=== PATIENT | male | born 1995 | race Hispanic/Latino ===

== ENCOUNTER 2022-07-30 01:15 | Emergency (ER) | payer OTHER ==
[2022-07-30] MEDS ORDERED: ONDANSETRON 4 MG/2 ML VIAL ONE (01:34)
[2022-07-30] MEDS ORDERED: TDAP (DIPHTH,PERTUSS(ACELL),TET VAC) 0.5 ML VIAL IMVAC ONE (01:34)
[2022-07-30] MEDS ORDERED: NA CHLORIDE 0.9% 100 ML IV ONE (01:34)
[2022-07-30] MEDS ORDERED: NA CHLORIDE 0.9% 1,000 ML ONE (01:34)
[2022-07-30] MEDS ORDERED: CEFAZOLIN SODIUM 1 GM/VIAL ONE (01:34)
[2022-07-30 01:39] LABS: Absolute Lymphocytes (CBC) 1.9 K/uL (0.7-4.9); Hematocrit 43.2 % (36.0-45.0); Lymphocytes % 19.1 % (15.3-44.8); MCV 86.9 fL (80-100); RBC Red Blood Cell Count 4.97 M/uL (3.86-4.86)
[2022-07-30 01:47] LABS: Protime INR 0.94
[2022-07-30 01:56] LABS: Urine Blood 3+ (Negative); Urine Glucose Negative (Negative); Urine Protein 2+ (Negative); Urine Specific Gravity >=1.030 (1.005-1.030); Urine pH 5.5 (5.0-7.0)
[2022-07-30 02:01] LABS: ALT/SGPT 58 U/L (16-61); AST/SGOT 36 U/L (15-37); Albumin 3.8 g/dL (3.4-5.0); Alkaline Phosphatase 64 U/L (45-117); BUN Blood Urea Nitrogen 10 mg/dL (7-18); Bicarbonate 27 mmol/L (21-32); Bilirubin Direct < 0.1 mg/dL (0-0.2); Bilirubin Total 0.2 mg/dL (0.2-1.0); Glomerular Filtration Rate 97 ml/min (=/>90); Glucose Level 145 mg/dL (74-106); Potassium 3.8 mmol/L (3.5-5.1); Protein, Total 7.1 g/dL (6.4-8.2); Sodium Level 140 mmol/L (136-145)
[2022-07-30 02:14] LABS: Barbiturates NEGATIVE (NEGATIVE); Benzodiazepines NEGATIVE (NEGATIVE); Cocaine NEGATIVE (NEGATIVE); METHAMPHETAM NEGATIVE (NEGATIVE); Methadone NEGATIVE (NEGATIVE); Opiates NEGATIVE (NEGATIVE); Phencyclidine NEGATIVE (NEGATIVE); THC Cannibis NEGATIVE (NEGATIVE)
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
[2022-07-30 04:22] VITALS: TEMP 97.8
[2022-07-30 04:25] VITALS: BP 123/66; O2SAT 99
--- NOTE | 2022-07-30 21:41 | RAD REPORT ---
EXAM DESCRIPTION: RAD - Femur Left - 07/30/2022 2:57 am TECHNIQUE: Frontal and lateral views of the right femur. COMPARISON: No relevant prior studies available. FINDINGS: Bones/joints: Unremarkable. No acute fracture. No dislocation. Soft tissues: Unremarkable. Other findings: Excreted contrast within the urinary bladder. * A single impression for all exams can be found at the end of this report IMPRESSION: XR Pelvis, 1 View: No acute injury. XR Left Femur, 2 Views: No acute injury. XR Right Femur, 2 Views: No acute injury. Electronically signed by: Shereen Hauser MD 07/30/2022 3:24 AM PADDED PRODUCTS FINISHER Due to temporary technical issues with the PACS/Fluency reporting system, reports are being signed by the in house radiologists without review as a courtesy to insure prompt reporting. The interpreting radiologist is fully responsible for the content of the report.
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
--- NOTE | 2022-08-02 08:37 | EKG ---
Test Date: 2022-07-30 Test Time: 02:13:50 Landscaping Specialist: RV MEASUREMENT RESULTS: Intervals: Rate: 116 NE: 156 QRSD: 68 QT: 318 QTc: 442 Morrison: P: 60 NE: 156 QRS: 54 T: 24 INTERPRETIVE STATEMENTS: Sinus tachycardia Otherwise normal ECG No previous ECG available for comparison Electronically Signed On 08-02-22 08:32:56 SOAP INSPECTOR by Davi Miller
== END 2022-07-30 04:17 | disposition home or self-care (01) ==
LOC: EDSEX 01:15 → ER 01:15
DX: S00.83XA Contusion of other part of head, initial encounter (principal); F10.129 Alcohol abuse with intoxication, unspecified; M79.605 Pain in left leg; M79.604 Pain in right leg; R31.9 Hematuria, unspecified; R41.82 Altered mental status, unspecified; V58.5XXA Driver of pick-up truck or van injured in noncollision transport accident in traffic accident, initial encounter; Z23 Encounter for immunization
CPT/HCPCS: 96365; 96361; 93005; 85025; 80048; 36415; 80320; 86900; 86850; 80329 ×2; 85610; 86901; 80076; 85730; 81003; 80307; 70450; 72125; 71260; 70486; 76377; 74177; 71045; 72170; 73030; 73552 ×2; 90471; 51702; 96375; 99284; 96366; Q9967; J7030; J2405; J0690

== ENCOUNTER 2022-07-30 10:24 | Emergency (ER) | payer OTHER ==
--- OUTSIDE RECORDS SUMMARY | 2022-07-30 10:27 | XMS REPORT | Continuity of Care Document ---
:1995 Author Organization [facility] t Address [address] [place] [address] Care Team Providers Name Role Phone PCP, PATIENT DOES NOT HAVE A Primary Care Physician UnavailJUWAN Cervantes Attending Clinician Unavailable JUWAN PASTOR Attending Clinician Unavailable Mini YOSTPLaurie Attending Clinician Dottie Boone RN Attending Clinician Unavailable Kyae Carvajal Attending Clinician KAYE PATRICIO Attending Clinician Unavailable JUWAN PASTOR Admitting Clinician Unavailable Problems Condition Condition Condition Status Onset Resolution Last Treating Co mments Source Name Details Category Date Date Treatment Clinician Date No known No known Disease Unive rs active active ity of problems problems [facility] Allergies, Adverse Reactions, Alerts Allergy Allergy Status Severity Reaction(s) Onset Inactive Treating Comm ents Source Name Type Date Date Clinician NO KNOWN Drug Active Univers ALLERGIE Class ity of S [facility] Social History Social Habit Start Date Stop Date Quantity Comments Source Exposure to 2022-01-14 2022-01-24 Yes [facility] SARS-CoV-2 (event) [facility]:00[facility]00 [facility] Assigned At [birth year] [facility] 00:00:00 00:00:00 [facility] Smoking Status Start Date Stop Date Source Unknown if ever smoked [facility] Medications Ordered Filled Start Stop Current Ordering Indication Dosage Frequency Signature Comments Components Source Medication Medication Date Date Medication? Clinician (SIG) Name Name ondansetron No 4mg 4 mg, Univ ers (ZOFRAN) 01-24 Oral, ity of tablet 4 mg 19:15: 20[place]07 [place] dose, On Medical Mon Branch 01/24/22 at 1415, Routine acetaminoph No 650mg 650 mg, U nivers en 01-24 Oral, ity of (TYLENOL) 19:15: 20:06 [place] 650 00 :00 dose, On Medic al mg Mon Branch 01/24/22 at 1415, JEANETTE ondansetron Yes [id number] 4mg Take 1 Univers (ZOFRAN) 4 01-24 tablet by ity of mg tablet 00:00: mouth [place] 00 every 8 Medical (eight) Branch hours as needed for Nausea and Vomiting (N/V). benzonatate Yes [id number] 100mg Take 1 Univers 100 mg 6-27 capsule by ity of capsule 00:00: mouth 3 [place] 00 (three) Medical times Branch daily as needed for Cough. nirmatrelvi Yes [id number] 3{tbl} Take 3 Univers r-ritonavir 6-27 tablets by it y of (PAXLOVID, 00:00: [place] EUA,) 150 00 (two) Medical mg x 2- 100 times Branch mg tablet daily. codeine-gua 2020- No 10mL 10 mL, Uni vers ifenesin 04-12 Oral, ity of (ROBITUSSIN 03:15: 02:26 [place] 1 [place] 10- 00 :00 dose, On Medic al mg/5 mL [place] oral 04/11/21 at solution 10 2215, JEANETTE mL codeine-gua 2020- No 10mL 10 mL, Uni vers ifenesin 04-12 Oral, ity of (ROBITUSSIN 03:15: 02:26 [place] 1 [place] 10-100 00 :00 dose, On Medic al mg/5 mL [place] oral 04/11/21 at solution 10 2215, JEANETTE mL ondansetron 2020- No [id number] 8mg 8 mg, Slow Univers (ZOFRAN 04-12 IV Push, ity of (PF)) 00:45: 23:49 ONCE, 1 [place] injection 8 00 :00 dose, On Medi santi mg [facility] 04/11/21 at 1945, JEANETTE ketorolac 2020- No [id number] 30mg 30 mg, Univers (TORADOL) 04-12 Slow IV ity of injection 00:45: 23:50 Push, [place] 30 mg 00 :00 ONCE, 1 Medical dose, On [facility] 04/11/21 at 1945, JEANETTE
Fa culty member approving Restricted medication : EMERGENCY ROOM, ondansetron 2020- No [id number] 8mg 8 mg, Slow Univers (ZOFRAN 04-12 IV Push, ity of (PF)) 00:45: 23:49 ONCE, 1 [place] injection 8 00 :00 dose, On Medi santi mg [facility] 04/11/21 at 1945, JEANETTE ketorolac 2020- No [id number] 30mg 30 mg, Univers (TORADOL) 04-12 Slow IV ity of injection 00:45: 23:50 Push, [place] 30 mg 00 :00 ONCE, 1 Medical dose, On [facility] 04/11/21 at 1945, JEANETTE
Fa culty member approving Restricted medication : EMERGENCY ROOM, iopamidol 2020- No [id number] 100mL 100 mL, Univers (ISOVUE 04-12 Intravenou ity o f 370-500 mL) 00:30: 23:19 s, ONCE, 1 [place] injection 00 :00 dose, On Medica l 100 mL [facility] 04/11/21 at 1930, Routine iopamidol 2020- No [id number] 100mL 100 mL, Univers (ISOVUE 04-12 Intravenou ity o f 370-500 mL) 00:30: 23:19 s, ONCE, 1 [place] injection 00 :00 dose, On Medica l 100 mL [facility] 04/11/21 at 1930, Routine NaCl 0.9% 2020- No [id number] 1000mL at 999 Univers (NS) bolus 04-11 mL/hr, ity of infusion 23:45: 01:25 1,000 mL, [place] 1,000 mL 00 :00 IV Medical Piggyback, Branch ONCE, 1 dose, On [place] 04/11/21 at 1845, STAT NaCl 0.9% No [id number] 1000mL at 999 Univers (NS) bolus 04-11 mL/hr, ity of infusion 23:45: 01:25 1,000 mL, [place] 1,000 mL 00 :00 IV Medical Piggyback, Branch ONCE, 1 dose, On [place] 04/11/21 at 1845, STAT ibuprofen 2020- No [id number] 800mg 800 mg, Univers (IBU) 04-11 Oral, ity of tablet 800 23:45: 23:08 ONCE, 1 [place] mg 00 :00 dose, On [facility] 04/11/21 at 1845, JEANETTE ibuprofen No [id number] 800mg 800 mg, Univers (IBU) 04-11 Oral, ity of tablet 800 23:45: 23:08 ONCE, 1 [place] mg 00 :00 dose, On [facility] 04/11/21 at 1845, JEANETTE acetaminoph 0 2020- No [id number] 1000mg 1,000 mg, Univers en 04-11 Oral, ity of (TYLENOL) 23:30: 22:25 ONCE, [place] tablet [place] :00 dose, On Medical 1,000 mg [facility] 04/11/21 at 1830, JEANETTE acetaminoph 0 2020- No [id number] 1000mg 1,000 mg, Univers en 04-11 Oral, ity of (TYLENOL) 23:30: 22:25 ONCE, [place] tablet 00 :00 dose, On Medical 1,000 mg [facility] 04/11/21 at 1830, JEANETTE albuterol 2020-0 Yes [id number] 2{puff} Inhale 2 Univers 90 9-12 Puffs ity of mcg/actuati 00:00: every 4 [place] on inhaler 00 (four) Medical hours as Branch needed for Wheezing or Shortness of Breath. ondansetron 2021-0 Yes [id number] 4mg Take 1 Univers (ZOFRAN 9-12 tablet by ity of ODT) 4 mg 00:00: mouth [place] disintegrat 00 every 8 Medic al ing tablet (eight) Branch hours as needed for Nausea and Vomiting (N/V). benzonatate 2021-0 Yes [id number] 100mg Take 1 Univers 100 mg 9-12 capsule by ity of capsule 00:00: mouth 3 [place] 00 (three) Medical times Branch daily as needed for Cough. albuterol 2021-0 Yes [id number] 2{puff} Inhale 2 Univers 90 9-12 Puffs ity of mcg/actuati 00:00: every 4 [place] on inhaler 00 (four) Medical hours as Branch needed for Wheezing or Shortness of Breath. ondansetron 2021-0 Yes [id number] 4mg Take 1 Univers (ZOFRAN 9-12 tablet by ity of ODT) 4 mg 00:00: mouth [place] disintegrat 00 every 8 Medic al ing tablet (eight) Branch hours as needed for Nausea and Vomiting (N/V). benzonatate 2021-0 Yes [id number] 100mg Take 1 Univers 100 mg 9-12 capsule by ity of capsule 00:00: mouth 3 [place] 00 (three) Medical times Branch daily as needed for Cough. albuterol 2021-0 Yes [id number] 2{puff} Inhale 2 Univers 90 9-12 Puffs ity of mcg/actuati 00:00: every 4 [place] on inhaler 00 (four) Medical hours as Branch needed for Wheezing or Shortness of Breath. ondansetron 2021-0 Yes [id number] 4mg Take 1 Univers (ZOFRAN 9-12 tablet by ity of ODT) 4 mg 00:00: mouth [place] disintegrat 00 every 8 Medic al ing tablet (eight) Branch hours as needed for Nausea and Vomiting (N/V). benzonatate 2021-0 Yes [id number] 100mg Take 1 Univers 100 mg 9-12 capsule by ity of capsule 00:00: mouth 3 [place] 00 (three) Medical times Branch daily as needed for Cough. albuterol 2021-0 Yes [id number] 2{puff} Inhale 2 Univers 90 9-12 Puffs ity of mcg/actuati 00:00: every 4 [place] on inhaler 00 (four) Medical hours as Branch needed for Wheezing or Shortness of Breath. ondansetron Yes [id number] 4mg Take 1 Univers (ZOFRAN 9-12 tablet by ity of ODT) 4 mg 00:00: mouth [place] disintegrat 00 every 8 Medic al ing tablet (eight) Branch hours as needed for Nausea and Vomiting (N/V). benzonatate Yes [id number] 100mg Take 1 Univers 100 mg 9-12 capsule by ity of capsule 00:00: mouth 3 [place] 00 (three) Medical times Branch daily as needed for Cough. albuterol Yes [id number] 2{puff} Inhale 2 Univers 90 9-12 Puffs ity of mcg/actuati 00:00: every 4 [place] on inhaler 00 (four) Medical hours as Branch needed for Wheezing or Shortness of Breath. ondansetron 2021- No [id number] 4mg Take 1 Univers (ZOFRAN 9-12 -27 tablet by ity of ODT) 4 mg 00:00: 00:00 mouth [place] disintegrat 00 :00 every 8 Medic al ing tablet (eight) Branch hours as needed for Nausea and Vomiting (N/V). benzonatate 2021- No [id number] 100mg Take 1 Univers 100 mg 9-12 -27 capsule by ity of capsule 00:00: 00:00 mouth 3 [place] 00 :00 (three) Medical times Branch daily as needed for Cough. Vital Signs Vital Name Observation Time Observation Value Comments Source Systolic blood 2022-01-24 21:00:00 [facility] Diastolic blood 2022-01-24 21:00:00 76 mm[Hg] [facility] Heart rate 2022-01-24 21:00:00 95 /min [facility] Respiratory rate 2022-01-24 21:00:00 16 /min [facility] Oxygen saturation in 2022-01-24 21:00:00 100 /min [facility] Arterial blood by [facility] Pulse oximetry Branch Body temperature 2022-01-24 17:25:00 37.56 [facility] Body weight 2022-01-24 17:25:00 113.399 kg [facility] Systolic blood 2021-04-12 02:36:00 132 mm[Hg] Univer sity of pressure [facility] Diastolic blood 2021-04-12 02:36:00 70 mm[Hg] [facility] Heart rate 2021-04-12 02:36:00 83 /min [facility] Respiratory rate 2021-04-12 02:36:00 18 /min [facility] Oxygen saturation in 2021-04-12 02:36:00 100 /min [facility] Arterial blood by [facility] Pulse oximetry [place] Body temperature 2021-04-12 00:00:00 37.78 [facility] Body weight 2021-04-11 22:17:00 99.791 kg [facility] Procedures Procedure Date / Time Performed Performing Clinician Sourc e HB ECG ROUTINE & 2022-01-24 21:06:43 Frantz [facility] RHYTHM STRIP [facility] XR CHEST 2 VW 2022-01-24 18:47:00 Frantz [facility] ADC,CLC OR LCC ONLY - 2021-04-11 23:52:00 Kaye Patricio [facility] INFLUENZA A & B DIRECT Medical [place] ANTIGEN CT CHEST PULMONARY 2021-04-11 23:28:25 Kaye Patricio [facility] ANGIOGRAM [facility] URINALYSIS 2021-04-11 23:05:[address] [facility] TROPONIN I 2021-04-11 23:04:[address] [facility] HEPATIC FUNCTION PANEL 2021-04-11 23:04:[address] [facility] ([id number]) [facility] (ALB,T.PRO,BILI T,BU/BC,ALT,AST,ALK PHOS) BASIC METABOLIC PANEL 2021-04-11 23:04:00 Kaye Patricio [facility] (NA, K, CL, CO2, Medical Branch GLUCOSE, BUN, CREATININE, CA) CBC WITH DIFF 2021-04-11 23:04:00 Kaye Patricio [facility] N-TERMINAL PRO-BNP 2021-04-11 23:04:00 [facility] COVID-19 (ID NOW RAPID 2021-04-11 22:25:00 [facility] CONSENT/REFUSAL FOR 2021-04-11 22:04:13 Doctor Unassigned, No [facility] DIAGNOSIS AND Name [facility] TREATMENT Encounters Start End Encounter Admission Attending Care Care Encounter Source Date/Time Date/Time Type Type Clinicians Facility Department ID 2022-01-24 2022-01-24 Emergency X ALEJANDROSHAMIR JUWAN [facility] ERT [id number] Univers 12:24:00 16:27:00 JUWAN PASTOR [facility] 2022-01-24 2022-01-24 Emergency Laurie Morse TRAUMA 1.2. [id number] Univers 12:24:00 16:27:00 Juwan Pastor [place] [id number] [place] [id number] [facility] 014 Branch 2021-04-12 2021-04-12 Letter WILL [place] [id number] Univers 00:00:00 00:00:00 (Out) Dottie Marcos [place] [id number] it y of [facility] 4.2.7.2.686 [place] [id number] [facility] 019 Branch 2021-04-11 2021-04-11 Emergency [facility] [id number] Univers 17:26:00 21:40:00 Kaye [place] [id number] i ty [facility] [place] [id number] [facility] 084 Branch 2021-04-11 2021-04-11 Emergency X [facility] ERT [id number] Univers 17:26:00 17:26:00 KAYE [facility] Results Test Description Test Time Test Comments Results Result Comments Source TROPONIN I 2021-04-11 23:42:57 Test Item Value Reference Range Interpretation Comme nts TROPONIN I (test code = 0.001 ng/mL See_Comment [Au tomated message] The [id number]) system which ge nerated this result tra nsmitted reference range : <=0.034. The reference r sumi was not used to int erpret this result as normal/abnormal . KALEY (test code = KALEY) Reference (Normal) Range (defined by the 99th percentile reference limit): <= 0.034 ng/mL Note: Cardiac troponin begins to rise 3-4 hours after the onset of ischemia. Repeat in 4-6 hours if the sample was drawn within 3-4 hours of the onset of the symptom and found normal. Diagnosis of myocardial injury is made with acute changes in cTn concentrations with at least one serial sample above the 99th percentile upper reference limit (URL), taken together with the patient's clinical presentation. Biotin has been reported to cause a negative bias, interpret results relative to patient's use of biotin. Lab Interpretation Normal (test code = 34205-4) [id number] 23:42:57 Test Item Value Reference Interpretation Comments Range TROPONIN I (test 0.001 ng/mL See_Comment [Automated code = 5507626238) message] The system which generated this result transmitted reference range : <=0.034. The reference range was not used to interpret this result as normal/abnormal . KALEY (test code = Reference (Normal) KALEY) Range (defined by the 99th percentile reference limit): <= 0.034 ng/mL Note: Cardiac troponin begins to rise 3-4 hours after the onset of ischemia. Repeat in 4-6 hours if the sample was drawn within 3-4 hours of the onset of the symptom and found normal. Diagnosis of myocardial injury is made with acute changes in cTn concentrations with at least one serial sample above the 99th percentile upper reference limit (URL), taken together with the patient's clinical presentation. Biotin has been reported to cause a negative bias, interpret results relative to patient's use of biotin. Lab Interpretation Normal (test code = 06413-2) [facility] [id number] 23:39:35 Test Item Value Reference Range Interpretation Comments NT-proBNP (test code 58 pg/mL See_Comment [Autom ated = 0373973240) message] The system which generated this result transmitted reference range : <=125. The reference range was not used to interpret this result as normal/abnormal . KALEY (test code = KALEY) Biotin has been reported to cause a negative bias, interpret results relative to patient's use of biotin. Lab Interpretation Normal (test code = 80925-0) [facility] [id number] 23:39:35 Test Item Value Reference Range Interpretation Comments NT-proBNP (test code 58 pg/mL See_Comment [Autom ated = 1703669702) message] The system which generated this result transmitted reference range : <=125. The reference range was not used to interpret this result as normal/abnormal . KALEY (test code = KALEY) Biotin has been reported to cause a negative bias, interpret results relative to patient's use of biotin. Lab Interpretation Normal (test code = 28429-0) [facility] (NA, K, CL, CO2, GLUCOSE, BUN, CREATININE, CA)2021-04-11 23:30:52 Test Item Value Reference Range Interpretation Comments NA (test code = 139 mmol/L 135-145 8560372121) K (test code = 3.6 mmol/L 3.5-5.0 3004364880) CL (test code = 106 mmol/L 98-108 3090003663) CO2 TOTAL (test code = 21 mmol/L 23-31 L 2382188977) AGAP (test code = 2-16 3873076288) BUN (test code = 15 mg/dL 7-23 1430971300) GLUCOSE (test code = 103 mg/dL 70-110 4197215767) CREATININE (test code = 1.15 mg/dL 0.60-1.25 4072394919) CALCIUM (test code = 9.9 mg/dL 8.6-10.6 0212483434) eGFR (test code = mL/min/1.73m2 0266883023) KALEY (test code = KALEY) Association of Glomerular Filtration Rate (GFR) and Staging of Kidney Disease* + --+ --+ ------+| GFR (mL/min/1.73 m2) ?| With Kidney Damage ?| ?Without Kidney Damage+ --------+ --------+ +| ?>90 ?| ?Stage one ?| ? Normal ?+ ---+ ---+ -------+| ?60-89 ?| ?Stage two ?| ? Decreased GFR ? + --+ --+ ------+| ?30-59 ?| ?Stage three ?| ? Stage three ? + --+ --+ ------+| ?15-29 ?| ?Stage four ? | ? Stage four ?+ ---+ ---+ -------+| ?<15 (or dialysis) ? ?| ?Stage five ? | ? Stage five ?+ ---+ ---+ -------+ *Each stage assumes the associated GFR level has been in effect for at least three months. ?Stages 1 to 5, with or without kidney disease, indicate chronic kidney disease. Notes: Determination of stages one and two (with eGFR >59mL/min/1.73 m2) requires estimation of kidney damage for at least three months as defined by structural or functional abnormalities of the kidney, manifested by either:Pathological abnormalities or Markers of kidney damage (including abnormalities in the composition of the blood or urine or abnormalities in imaging tests). Lab Interpretation Abnormal (test code = 48764-8) [facility] (ALB,T.PRO,BILI T,BU/BC,ALT,AST,ALK PHOS)2021-04-11 23:30:52 Test Item Value Reference Range Interpretation Comments TOTAL BILI (test code = 4321568830) 0.8 mg/dL 0.1-1.1 BILI UNCON (test code = 6124869214) 0.6 mg/dL 0.1-1.1 BILI CONJ (test code = 2523527984) 0.0 mg/dL 0.0-0.3 T PROTEIN (test code = 2668615413) 8.6 g/dL 6.3-8.2 H ALBUMIN (test code = 5491306883) 5.0 g/dL 3.5-5.0 ALK PHOS (test code = 3980934704) 73 U/L 34-122 ALTv (test code = 1742-6) 67 U/L 5-50 H AST(SGOT) (test code = 0584578148) 40 U/L 13-40 Lab Interpretation (test code = Abnormal 14496-7) [facility] (NA, K, CL, CO2, GLUCOSE, BUN, CREATININE, CA)2021-04-11 23:30:52 Test Item Value Reference Range Interpretation Comments NA (test code = 139 mmol/L 135-145 4722190570) K (test code = 3.6 mmol/L 3.5-5.0 7786323899) CL (test code = 106 mmol/L 98-108 0916502282) CO2 TOTAL (test code = 21 mmol/L 23-31 L 1280535727) AGAP (test code = 2-16 4653331016) BUN (test code = 15 mg/dL 7-23 6576250831) GLUCOSE (test code = 103 mg/dL 70-110 3987939031) CREATININE (test code = 1.15 mg/dL 0.60-1.25 9727664566) CALCIUM (test code = 9.9 mg/dL 8.6-10.6 1009748720) eGFR (test code = mL/min/1.73m2 6488396748) KALEY (test code = KALEY) Association of Glomerular Filtration Rate (GFR) and Staging of Kidney Disease* + --+ --+ ------+| GFR (mL/min/1.73 m2) ?| With Kidney Damage ?| ?Without Kidney Damage+ --------+ --------+ +| ?>90 ?| ?Stage one ?| ? Normal ?+ ---+ ---+ -------+| ?60-89 ?| ?Stage two ?| ? Decreased GFR ? + --+ --+ ------+| ?30-59 ?| ?Stage three ?| ? Stage three ? + --+ --+ ------+| ?15-29 ?| ?Stage four ? | ? Stage four ?+ ---+ ---+ -------+| ?<15 (or dialysis) ? ?| ?Stage five ? | ? Stage five ?+ ---+ ---+ -------+ *Each stage assumes the associated GFR level has been in effect for at least three months. ?Stages 1 to 5, with or without kidney disease, indicate chronic kidney disease. Notes: Determination of stages one and two (with eGFR >59mL/min/1.73 m2) requires estimation of kidney damage for at least three months as defined by structural or functional abnormalities of the kidney, manifested by either:Pathological abnormalities or Markers of kidney damage (including abnormalities in the composition of the blood or urine or abnormalities in imaging tests). Lab Interpretation Abnormal (test code = 62637-8) [facility] ([address] (ALB,T.PRO,BILI T,BU/BC,ALT,AST,ALK PHOS)2021-04-11 23:30:52 Test Item Value Reference Range Interpretation Comments TOTAL BILI (test code = 2146441285) 0.8 mg/dL 0.1-1.1 BILI UNCON (test code = 0248884661) 0.6 mg/dL 0.1-1.1 BILI CONJ (test code = 1973022239) 0.0 mg/dL 0.0-0.3 T PROTEIN (test code = 9313176559) 8.6 g/dL 6.3-8.2 H ALBUMIN (test code = 3685206127) 5.0 g/dL 3.5-5.0 ALK PHOS (test code = 3388437765) 73 U/L 34-122 ALTv (test code = 1742-6) 67 U/L 5-50 H AST(SGOT) (test code = 8160849777) 40 U/L 13-40 Lab Interpretation (test code = Abnormal 86198-8) [facility] WITH [id number] 23:18:34 Test Item Value Reference Range Interpretation Comments WBC (test code = See_Comment H [Automated 0190-2) message] The system which generated this result transmit lane reference range : 4.20 - 10.70 10*3/?L. The reference range was not used to interpret this result as normal/abnormal . RBC (test code = See_Comment [Automated 919-8) message] The system which generated this result transmit lane reference range : 4.26 - 5.52 10*6/?L. The reference range was not used to interpret this result as normal/abnormal . HGB (test code = 15.6 g/dL 12.2-16.4 718-7) HCT (test code = 46.4 % 38.4-49.3 4544-3) MCV (test code = 85.5 fL 81.7-95.6 787-2) MCH (test code = 28.7 pg 26.1-32.7 785-6) MCHC (test code = 33.6 g/dL 31.2-35.0 786-4) RDW-SD (test code = 38.5 fL 38.5-51.6 08602-7) RDW-CV (test code = 12.5 % 12.1-15.4 788-0) PLT (test code = See_Comment [Automated 777-3) message] The system which generated this result transmit lane reference range : 150 - 328 10*3/ ?L. The reference range was not u sed to interpret th is result as normal/abnormal . MPV (test code = 10.5 fL 9.8-13.0 67901-0) NRBC/100 WBC (test See_Comment [Automat ed code = 7183711746) message] The system which generated this result transmit lane reference range : 0.0 - 10.0 /100 WBCs. The reference range was not used to interpret this result as normal/abnormal . NRBC x10^3 (test code <0.01 See_Comment [Auto mated = 5242244560) message] The system which generated this result transmit lane reference range : 10*3/?L. The reference range was not used to interpret this result as normal/abnormal . GRAN MAT (NEUT) % 77.6 % (test code = 770-8) IMM GRAN % (test code 0.60 % = 4443673608) LYMPH % (test code = 11.6 % 736-9) MONO % (test code = 7.7 % 5905-5) EOS % (test code = 2.1 % 713-8) BASO % (test code = 0.4 % 706-2) GRAN MAT x10^3(ANC) 10.24 10*3/uL 1.99-6.95 H (test code = 8554148561) IMM GRAN x10^3 (test 0.08 10*3/uL 0.00-0.06 H code = 1593389879) LYMPH x10^3 (test code 1.53 10*3/uL 1.09-3.23 = 731-0) MONO x10^3 (test code 1.02 10*3/uL 0.36-1.02 = 742-7) EOS x10^3 (test code = 0.28 10*3/uL 0.06-0.53 711-2) BASO x10^3 (test code 0.05 10*3/uL 0.01-0.09 = 704-7) Lab Interpretation Abnormal (test code = 84930-1) [facility] WITH [id number] 23:18:34 Test Item Value Reference Range Interpretation Comments WBC (test code = See_Comment H [Automated 0990-2) message] The system which generated this result transmit lane reference range : 4.20 - 10.70 10*3/?L. The reference range was not used to interpret this result as normal/abnormal . RBC (test code = See_Comment [Automated 789-8) message] The system which generated this result transmit lane reference range : 4.26 - 5.52 10*6/?L. The reference range was not used to interpret this result as normal/abnormal . HGB (test code = 15.6 g/dL 12.2-16.4 718-7) HCT (test code = 46.4 % 38.4-49.3 4544-3) MCV (test code = 85.5 fL 81.7-95.6 787-2) MCH (test code = 28.7 pg 26.1-32.7 785-6) MCHC (test code = 33.6 g/dL 31.2-35.0 786-4) RDW-SD (test code = 38.5 fL 38.5-51.6 62168-3) RDW-CV (test code = 12.5 % 12.1-15.4 788-0) PLT (test code = See_Comment [Automated 777-3) message] The system which generated this result transmit lane reference range : 150 - 328 10*3/ ?L. The reference range was not u sed to interpret th is result as normal/abnormal . MPV (test code = 10.5 fL 9.8-13.0 08466-6) NRBC/100 WBC (test See_Comment [Automat ed code = 5541112284) message] The system which generated this result transmit lane reference range : 0.0 - 10.0 /100 WBCs. The reference range was not used to interpret this result as normal/abnormal . NRBC x10^3 (test code <0.01 See_Comment [Auto mated = [id number]) message] The system which generated this result transmit lane reference range : 10*3/?L. The reference range was not used to interpret this result as normal/abnormal . GRAN MAT (NEUT) % 77.6 % (test code = 770-8) IMM GRAN % (test code 0.60 % = 0804212160) LYMPH % (test code = 11.6 % 736-9) MONO % (test code = 7.7 % 5905-5) EOS % (test code = 2.1 % 713-8) BASO % (test code = 0.4 % 706-2) GRAN MAT x10^3(ANC) 10.24 10*3/uL 1.99-6.95 H (test code = 2218580177) IMM GRAN x10^3 (test 0.08 10*3/uL 0.00-0.06 H code = 9056085741) LYMPH x10^3 (test code 1.53 10*3/uL 1.09-3.23 = 731-0) MONO x10^3 (test code 1.02 10*3/uL 0.36-1.02 = 742-7) EOS x10^3 (test code = 0.28 10*3/uL 0.06-0.53 711-2) BASO x10^3 (test code 0.05 10*3/uL 0.01-0.09 = 704-7) Lab Interpretation Abnormal (test code = 69772-2) [facility]"
[2022-07-30] MEDS ORDERED: ONDANSETRON 4 MG (ODT) TAB ONE (10:48)
--- NOTE | 2022-07-30 11:46 | RAD REPORT ---
EXAM DESCRIPTION: RAD - Shoulder Right 2 View - 07/30/2022 11:40 am CLINICAL HISTORY: PAIN COMPARISON: Shoulder Right 2 View dated 07/30/2022 FINDINGS/IMPRESSION: No acute fracture. No malalignment. No significant focal degenerative changes.
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
[2022-07-30 12:09] VITALS: BP 130/85; TEMP 99; O2SAT 100
== END 2022-07-30 12:04 | disposition home or self-care (01) ==
LOC: ER 10:24
DX: M25.511 Pain in right shoulder (principal); R11.2 Nausea with vomiting, unspecified
CPT/HCPCS: 73030; 99284; Q0162